=== PATIENT | male | born 1950 | race Caucasian/White ===

== ENCOUNTER 2018-04-27 15:14 | Emergency (ER) | payer MEDICARE ==
--- NOTE | 2018-04-27 16:04 | XRAY Report ---
Reason: soa Procedure Date: 04/27/2018 Accession Number: [id number] / [id number] Procedure: XR - Chest 2 View X-Ray CPT Code: 07532 FULL RESULT: EXAM: CHEST RADIOGRAPHY EXAM DATE: 04/27/2018 03:58 PM. CLINICAL HISTORY: Shortness of air. Nonproductive cough. COMPARISON: None. TECHNIQUE: 2 views. FINDINGS: Lungs/Pleura: Mild bronchial thickening particularly in the left lung base. No dense consolidation. No pleural effusion. No pneumothorax. Normal volumes. Mediastinum: Heart size is normal. Aorta is mildly tortuous. Aortic atherosclerosis. Other: Degenerative changes of the thoracic spine. IMPRESSION: 1. Mild bronchial thickening particularly in the left lung base through which can be seen with bronchitis. No dense consolidation. RADIA
[2018-04-27] MEDS ORDERED: AZITHROMYCIN 250 MG TABLET PO STA (17:38)
--- NOTE | 2018-04-27 17:43 | ED Physician Documentation ---
History of Present Illness - Stated complaint Stated Complaint: COUGH - Chief complaint Chief Complaint: Resp - Additonal information Additional information: hx from pt 67 male sick for about 10 days first sore throat then upper airway congestion now chest congestion and cough productive of yellow sputum that is hard to exepctoate lower rib pain with coughing no leg swelling GF with similar sx he did go to [place] but was sick prior during and after the trip Review of Systems Constitutional: denies: Fever Throat: reports: Sore throat Respiratory: reports: Cough GI: denies: Vomiting, Diarrhea Musculoskeletal: denies: Extremity swelling Endocrine: denies: Easy bruising / bleeding Immunocompromised: denies: Immunocompromised PD PAST MEDICAL HISTORY - Past Medical History Past Medical History: Yes Cardiovascular: Hypertension Endocrine/Autoimmune: Type 2 diabetes Musculoskeletal: Gout - Past Surgical History Past Surgical History: No - Present Medications Home Medications: Ambulatory Orders Medication Instructions Recorded Confirmed Allopurinol 100 mg PO 04/27/18 Azithromycin [Zithromax] 250 mg PO DAILY #4 tablet 04/27/18 Levothyroxine [Synthroid] 125 mcg PO QDAC 04/27/18 04/27/18 Losartan [Cozaar] 100 mg PO DAILY 04/27/18 04/27/18 Repaglinide [Prandin] 1 mg PO 04/27/18 diltiaZEM [Cardizem] 60 mg PO ONCE 04/27/18 04/27/18 - Allergies Allergies/Adverse Reactions: Allergies Allergy/AdvReac Type Severity Reaction Status Date / Time Sulfa (Sulfonamide Allergy Unknown Verified 04/27/18 15:26 Antibiotics) - Social History Does the pt smoke?: No Smoking Status: Never smoker Does the pt drink ETOH?: Yes Does the pt have substance abuse?: No - Immunizations Immunizations are current?: Yes PD ED PE NORMAL - Vitals Vital signs reviewed: Yes - HEENT HEENT: Other (mild) - Neck Neck: Supple, no meningeal sign - Cardiac Cardiac: RRR - Respiratory Respiratory: Other (ronchi L base) - Abdomen Abdomen: Non tender - Derm Derm: Normal color - Extremities Extremities: No edema, No calf tenderness / cord Results - Vitals Vitals: Vital Signs - 24 hr 04/27/18 15:22 Temperature 37.2 C Heart Rate 88 Respiratory 18 Rate Blood Pressure 187/88 H O2 Saturation 100 - Rads (name of study) CXR Radiology: See rad report (mild bronchial thickening L lung base which can be c/w bronchitis, no dense consolidation) Departure - Departure Disposition: 01 Home, Self Care Clinical Impression: Pneumonia Qualifiers: Pneumonia type: due to unspecified organism Laterality: left Lung location: lower lobe of lung Qualified Code(s): J18.1 - Lobar pneumonia, unspecified organism Condition: Good Instructions: ED Pneumonia Adult Prescriptions: Azithromycin [Zithromax] 250 mg PO DAILY #4 tablet Comments: Your xray does not show pneumonia but on exam the lower left lung sounds terrible So, as we discussed, I suspect you do have pneumonia and have prescribed antibiotics. Your blood pressure was a bit high today - please follow up with your PMD for a recheck
[2018-04-27 17:54] VITALS: BP 160/80
== END 2018-04-27 17:53 | disposition home or self-care (01) ==
LOC: ED 15:14
DX: J18.1 Lobar pneumonia, unspecified organism (principal); I10 Essential (primary) hypertension; E11.9 Type 2 diabetes mellitus without complications
CPT/HCPCS: 71046; 99283; A9270

== ENCOUNTER 2019-06-27 13:29 | Emergency (ER) | payer MEDICARE ==
--- NOTE | 2019-06-27 13:40 | ED Physician Documentation ---
PD HPI CHEST PAIN - Stated complaint Stated Complaint: CHEST PX - Chief complaint Chief Complaint: Cardiac - History obtained from History obtained from: Patient - History of Present Illness Timing - onset: How many weeks ago (1-2) Timing - onset during: Light activity (He has a history of diabetes and hypertension. No known history of heart disease. He states he exercises r egularly on a stationary bicycle and typically goes about 40 to 45 minutes without problems. He also is active walking and other activities. He has noticed feeling of chest pressure and shortness of breath with activity the last couple of weeks. He states he was only able to go about 10 minutes on his exercise bicycle without feeling discomfort. It would improve when resting. Today he had the onset of the discomfort with light activity and continued after resting. Additionally he is also been having feelings of palpitations intermittently not correlated with the chest pressure necessarily.), Exertion Timing - details: Still present (He has discomfort is still present today even after resting.) Quality: Pressure, Tightness. No: Sharp Location: Substernal Radiation: Back. No: Jaw, Neck Improved by: Rest (just did not improve with rest today) Worsened by: Exertion. No: Inspiration, Movement, Palpation Associated symptoms: Shortness of air, Palpitations. No: Nausea, Feeling faint / dizzy Similar symptoms before: Has not had sx before Review of Systems Constitutional: denies: Fever, Chills Nose: denies: Rhinorrhea / runny nose, Congestion Throat: denies: Sore throat Respiratory: denies: Cough GI: denies: Abdominal Pain, Nausea, Vomiting, Diarrhea Musculoskeletal: denies: Extremity swelling Neurologic: denies: Near syncope, Syncope PD PAST MEDICAL HISTORY - Past Medical History Cardiovascular: Hypertension Respiratory: None Neuro: None Endocrine/Autoimmune: Type 2 diabetes Musculoskeletal: Gout - Past Surgical History Past Surgical History: No - Present Medications Home Medications: Ambulatory Orders Medication Instructions Recorded Confirmed Levothyroxine [Synthroid] 125 mcg PO QDAC 04/27/18 04/27/18 Losartan [Cozaar] 100 mg PO DAILY 04/27/18 04/27/18 Repaglinide [Prandin] 1 mg PO 04/27/18 allopurinoL [Allopurinol] 100 mg PO 04/27/18 diltiaZEM [Cardizem] 60 mg PO ONCE 04/27/18 04/27/18 Insulin Glargine [Lantus Solostar] 0 unit 06/27/19 Insulin Regular Human [NovoLIN R] 10 unit SUBQ ONCE 06/27/19 06/27/19 - Allergies Allergies/Adverse Reactions: Allergies Allergy/AdvReac Type Severity Reaction Status Date / Time Sulfa (Sulfonamide Allergy Unknown Verified 06/27/19 13:39 Antibiotics) - Social History Does the pt smoke?: No Smoking Status: Never smoker Does the pt drink ETOH?: Yes Does the pt have substance abuse?: No - Immunizations Immunizations are current?: Yes PD ED PE NORMAL - Vitals Vital signs reviewed: Yes - General General: Alert and oriented X 3, No acute distress, Well developed/nourished - HEENT HEENT: Moist mucous membranes, Pharynx benign - Neck Neck: Supple, no meningeal sign, No adenopathy - Cardiac Cardiac: RRR, No murmur - Respiratory Respiratory: Clear bilaterally - Abdomen Abdomen: Soft, Non tender - Derm Derm: Normal color, Warm and dry - Extremities Extremities: No deformity, No tenderness to palpate, Normal ROM s pain, No edema, No calf tenderness / cord - Neuro Neuro: Alert and oriented X 3, No motor deficit, Normal speech Results - Vitals Vitals: Vital Signs - 24 hr 06/27/19 06/27/19 06/27/19 13:37 13:39 14:09 Temperature 36.8 C Heart Rate 98 70 72 Respiratory 18 18 18 Rate Blood Pressure 188/93 H 188/93 H 185/96 H O2 Saturation 97 97 96 06/27/19 06/27/19 06/27/19 15:39 16:00 16:30 Temperature 36.7 C Heart Rate 68 70 68 Respiratory 16 18 18 Rate Blood Pressure 160/80 H 175/93 H 162/86 H O2 Saturation 97 98 97 06/27/19 06/27/19 17:00 17:30 Temperature Heart Rate 66 63 Respiratory 18 18 Rate Blood Pressure 171/72 H 164/93 H O2 Saturation 98 99 Oxygen O2 Source Room air - EKG (time done) 13:34 Rate: Rate (enter#) (94) Rhythm: NSR [place]: Normal Intervals: Normal [place] QRS: Normal Ischemia: Normal ST segments, Other (t wave flattening laterally). No: ST elevation c/w ischemia, ST depression - Labs Labs: Laboratory Tests 06/27/19 06/27/19 06/27/19 14:28 14:28 14:28 WBC 6.8 RBC 4.94 Hgb 14.9 Hct 44.3 MCV 89.7 MCH 30.2 MCHC 33.6 RDW 13.7 Plt Count 188 MPV 10.2 Neut # (Auto) 4.6 Lymph # (Auto) 1.3 L [place] # (Auto) 0.6 Eos # (Auto) 0.2 Baso # (Auto) 0.1 Absolute Nucleated RBC 0.00 Nucleated RBC % 0.0 Sodium 140 Potassium 5.2 H Chloride 111 Carbon Dioxide 20 L Anion Gap 9.0 BUN 79 H Creatinine 2.1 H Estimated GFR (MDRD) 31 L Glucose 186 H Calcium 9.4 Magnesium 1.9 Total Bilirubin 0.5 AST 16 ALT 20 Alkaline Phosphatase 56 Troponin I High Sens 78.6 H* B-Natriuretic Peptide Total Protein 6.5 L Albumin 3.7 Globulin 2.8 Albumin/Globulin Ratio 1.3 Lipase 61 H 06/27/19 06/27/19 14:28 15:47 WBC RBC Hgb Hct MCV MCH MCHC RDW Plt Count MPV Neut # (Auto) Lymph # (Auto) [place] # (Auto) Eos # (Auto) Baso # (Auto) Absolute Nucleated RBC Nucleated RBC % Sodium Potassium Chloride Carbon Dioxide Anion Gap BUN Creatinine Estimated GFR (MDRD) Glucose Calcium Magnesium Total Bilirubin AST ALT Alkaline Phosphatase Troponin I High Sens 119.1 H* B-Natriuretic Peptide 72 Total Protein Albumin Globulin Albumin/Globulin Ratio Lipase - Rads (name of study) chest xray Radiology: Prelim report reviewed (no infiltrates. Normal heart size. ), See rad report PD MEDICAL DECISION MAKING - ED course Complexity details: reviewed results (He has symptoms of angina just over the last couple of weeks with worsening to light exertion and rest angina today improved with nitroglycerin. He has an elevation of troponin suggesting unstable angina. I will talk with cardiology to decide a plan on further evaluation.), re-evaluated patient (pressure gone with NTG. ), considered differential (New onset angina versus unstable angina or non-STEMI given his chest pain very indicative of exertional in symptoms for couple of weeks and progressively worse.), d/w patient, d/w intelligence consultant (Looking for bed availability at higher level of care facilities. No beds were available nearby and expanded out. [facility] able to accept the patient with anticipated discharges this evening and afternoon. I talked with Dr. Sykes the associate director financial aid who will further evaluate the patient and likely do a heart cath given the positive troponins. To treat as non-STEMI and unstable angina at this point. I talked with Dr. Sidhu the hospitalist who will accept the transfer.) Departure - Departure Disposition: 02 Transfer Acute Care Hosp Clinical Impression: Unstable angina, Elevated troponin, Diabetes Condition: Stable Record reviewed to determine appropriate education?: Yes
[2019-06-27] MEDS ORDERED: NITROGLYCERIN SL 0.4 MG TABLET SL STA (14:17)
[2019-06-27 14:39] LABS: BASOPHILS # (AUTO) 0.1 10^3/uL (0.0-0.1); BASOPHILS % (AUTO) 0.9 %; EOSINOPHILS # (AUTO) 0.2 10^3/uL (0.0-0.7); EOSINOPHILS % (AUTO) 2.2 %; HGB - HEMOGLOBIN 14.9 g/dL (14.0-18.0); LYMPHOCYTES # (AUTO) 1.3 10^3/uL (1.5-3.5); LYMPHOCYTES % (AUTO) 19.1 %; MEAN CORPUSCULAR HEMOGLOBIN 30.2 pg (27.0-31.0); MEAN CORPUSCULAR HGB CONC 33.6 g/dL (32.0-36.0); MEAN CORPUSCULAR VOLUME 89.7 fL (80.0-94.0); MEAN PLATELET VOLUME 10.2 fL (7.4-11.4); MONOCYTES # (AUTO) 0.6 10^3/uL (0.0-1.0); MONOCYTES % (AUTO) 8.8 %; NEUTROPHILS # (AUTO) 4.6 10^3/uL (1.5-6.6); NEUTROPHILS % (AUTO) 68.3 %; PLT - PLATELET COUNT 188 10^3/uL (130-450); RED BLOOD COUNT 4.94 10^6/uL (4.70-6.10); RED CELL DISTRIBUTION WIDTH 13.7 % (12.0-15.0); WHITE BLOOD COUNT 6.8 x10^3/uL (4.8-10.8)
[2019-06-27 14:47] LABS: ALBUMIN 3.7 g/dL (3.2-5.5); ALBUMIN/GLOBULIN RATIO 1.3 (1.0-2.2); BILIRUBIN,TOTAL 0.5 mg/dL (0.2-1.0); CALCIUM 9.4 mg/dL (8.5-10.3); CREATININE 2.1 mg/dL (0.6-1.2); MAGNESIUM 1.9 mg/dL (1.7-2.8); TOTAL PROTEIN 6.5 g/dL (6.7-8.2)
--- NOTE | 2019-06-27 14:59 | XRAY Report ---
Reason: Chest Pain Procedure Date: 06/27/2019 Accession Number: [id number] / [id number] Procedure: XR - Chest 1 View X-Ray CPT Code: 04466 Final Report FULL RESULT: EXAM: CHEST RADIOGRAPHY 1 VIEW EXAM DATE: 06/27/2019. CLINICAL HISTORY: Chest pain. COMPARISON: PA and lateral chest done 04/27/2018. TECHNIQUE: AP portable chest at 1422. FINDINGS: Lungs/Pleura: Normal vasculature. The lungs are clear. No pleural fluid or pneumothorax. Mediastinum: Normal cardiac and mediastinal contours. Mild atherosclerosis of the aortic arch. Bones: Degenerative changes of the spine. IMPRESSION: Within normal limits for age. RADIA
[2019-06-27] MEDS ORDERED: NITROGLYCERIN 2% PASTE TOP STA (16:25)
[2019-06-27] MEDS ORDERED: HEPARIN 25000UNITS/500ML (D5W) 25,000 UNIT/500 ML BAG IV STA (16:25)
[2019-06-27] MEDS ORDERED: HEPARIN 5,000 UNIT/ML VIAL IVP STA (16:25)
[2019-06-27] MEDS ORDERED: CLOPIDOGREL 75 MG TABLET PO STA (16:25)
[2019-06-27] MEDS ORDERED: ASPIRIN CHEW 81 MG TABLET PO STA (16:41)
[2019-06-27] MEDS ORDERED: METOPROLOL 5 MG/5 ML VIAL IVP STA (16:49)
[2019-06-27 18:42] VITALS: BP 160/77
== END 2019-06-27 19:18 | disposition short-term general hospital (02) ==
LOC: ED 13:29
DX: I20.0 Unstable angina (principal); R79.89 Other specified abnormal findings of blood chemistry; I10 Essential (primary) hypertension; E11.9 Type 2 diabetes mellitus without complications; Z79.4 Long term (current) use of insulin
CPT/HCPCS: 36415; 71045; 80053; 83690; 83735; 83880; 84484; 85025; 93005; 96374; 99284; 99285; A9270

== ENCOUNTER 2019-06-27 19:21 | Outpatient (CLI) | payer MEDICARE | END 2019-06-27 19:22 | disposition short-term general hospital (02) | LOC: EMS 19:21 | PROVIDERS: ATTEND Surgery | DX: R07.9 Chest pain, unspecified (principal); R79.89 Other specified abnormal findings of blood chemistry | CPT/HCPCS: A0425; A0426 ==

== ENCOUNTER 2019-09-12 20:47 | Emergency (ER) | payer MEDICARE ==
--- NOTE | 2019-09-12 20:58 | ED Physician Documentation ---
History of Present Illness - Stated complaint Stated Complaint: DIZZY/CABRERA/FALL - History obtained from History obtained from: Patient (Patient is a very pleasant 69-year-old male here with a chief complaint of head injury patient reports that 3 days ago he was cutting his grass and he was walking backwards when he tripped over a rock and fell and hit the back of his head on a rock. He is complaining of a feeling of nausea, Loss of consciousness, mild headache he denies any chest pain or syncopal episodes he has an insulin-dependent diabetic he reports he has been checking his blood sugars and they have been in the low 100s. He denies any fevers, rashes or any recent illnesses.He is on Plavix secondary to coronary artery disease. He has had 1 previous VT with 1 stent placement.) Review of Systems Constitutional: reports: Reviewed and negative Eyes: reports: Reviewed and negative Ears: reports: Reviewed and negative Nose: reports: Reviewed and negative Throat: reports: Reviewed and negative Cardiac: reports: Reviewed and negative Respiratory: reports: Reviewed and negative GI: reports: Reviewed and negative : reports: Reviewed and negative Skin: reports: Reviewed and negative Musculoskeletal: reports: Reviewed and negative Neurologic: reports: Head injury Psychiatric: reports: Reviewed and negative Endocrine: reports: Reviewed and negative Immunocompromised: reports: Reviewed and negative PD PAST MEDICAL HISTORY - Past Medical History Cardiovascular: Hypertension Respiratory: None Neuro: None Endocrine/Autoimmune: Type 2 diabetes : Other Musculoskeletal: Gout - Past Surgical History Past Surgical History: No - Present Medications Home Medications: Ambulatory Orders Medication Instructions Recorded Confirmed allopurinoL [Allopurinol] 200 mg PO DAILY 04/27/18 09/12/19 Insulin Glargine [Lantus Solostar] 10 unit SUBQ DAILY 06/27/19 09/12/19 Aspirin 81 mg PO DAILY 09/12/19 09/12/19 Atorvastatin Calcium 80 mg PO QPM 09/12/19 09/12/19 Carvedilol 6.25 mg PO BID 09/12/19 09/12/19 Colchicine 0.6 mg PO DAILY PRN 09/12/19 09/12/19 Insulin Aspart [NovoLOG] units SUBQ TID 09/12/19 Levothyroxine Sodium 200 mcg PO DAILY 09/12/19 09/12/19 Nitroglycerin 0.4 mg PO DAILY 09/12/19 09/12/19 Ondansetron Odt [Zofran Odt] 4 mg TL Q6H PRN #10 tablet 09/12/19 Valsartan 320 mg PO DAILY 09/12/19 09/12/19 amLODIPine [Norvasc] 5 mg PO DAILY 09/12/19 09/12/19 - Allergies Allergies/Adverse Reactions: Allergies Allergy/AdvReac Type Severity Reaction Status Date / Time Sulfa (Sulfonamide Allergy Unknown Verified 09/12/19 20:58 Antibiotics) - Social History Does the pt smoke?: No Smoking Status: Never smoker Does the pt drink ETOH?: Yes Does the pt have substance abuse?: No - Immunizations Immunizations are current?: Yes - POLST Patient has POLST: No PD ED PE NORMAL - Vitals Vital signs reviewed: Yes - General General: Alert and oriented X 3, No acute distress, Well developed/nourished - HEENT HEENT: Atraumatic, PERRL, Moist mucous membranes - Neck Neck: Supple, no meningeal sign, No bony TTP, No JVD - Cardiac Cardiac: RRR, No murmur, Strong equal pulses - Respiratory Respiratory: No respiratory distress, Clear bilaterally - Abdomen Abdomen: Normal bowel sounds, Soft, Non tender, Non distended, No organomegaly - Back Back: No CVA TTP, No spinal TTP - Derm Derm: Normal color, Warm and dry, No rash - Extremities Extremities: No deformity, No tenderness to palpate, Normal ROM s pain, No edema, No calf tenderness / cord - Neuro Neuro: Alert and oriented X 3, 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 Normal gait he can walk on his heels he can walk on his toes extract motions intact he has fatigable horizontal nystagmus there is no vertical nystagmus is HINTS exam is negative. There is no facial droop, no pronator drift and no unilateral weakness. Normal [id number] normal [id number] and normal rapid alternating movements.Strength is 5 out of 5 bilateral upper and lower extremity sensations intact light touch reflexes are 2+ and symmetric in bilateral upper and lower extremities.) - Psych Psych: Normal mood, Normal affect Results - Vitals Vitals: Vital Signs - 24 hr 09/12/19 09/12/19 09/12/19 20:50 21:17 21:36 Temperature 37 C Heart Rate 69 63 62 Respiratory 18 20 12 Rate Blood Pressure 181/93 H 181/93 H 180/86 H O2 Saturation 100 98 97 09/12/19 09/12/19 22:11 22:54 Temperature 36.8 C Heart Rate 63 62 Respiratory 13 13 Rate Blood Pressure 164/86 H 176/90 H O2 Saturation 98 99 Oxygen O2 Source Room air PD MEDICAL DECISION MAKING - ED course Complexity details: considered differential (History and exam are consistent with close head injury CT scan of the head is negative CT scan of the cervical spine is negative. He has complained of nausea will provide him with oral Zofran.) Departure - Departure Disposition: 01 Home, Self Care Clinical Impression: Head injury Qualifiers: Encounter type: initial encounter Qualified Code(s): S09.90XA - Unspecified injury of head, initial encounter Condition: Stable Instructions: ED Head Injury Closed Follow-Up: Patricia Marcial MD [Primary Care Provider] - Tomorrow Prescriptions: Ondansetron Odt [Zofran Odt] 4 mg TL Q6H PRN #10 tablet PRN Reason: Nausea / Vomiting Discharge Date/Time: 09/12/19 22:54
--- NOTE | 2019-09-12 22:31 | CT Report ---
Reason: head injury Procedure Date: 09/12/2019 Accession Number: [id number] / [id number] Procedure: CT - HEAD WO CPT Code: Final Report FULL RESULT: EXAM: CT HEAD EXAM DATE: 09/12/2019 09:24 PM. CLINICAL HISTORY: Tripped and fell backwards mowing lawn. Vertigo for 2 days. COMPARISON: None. TECHNIQUE: Multiaxial CT images were obtained from the foramen magnum to the vertex. Reformats: Sagittal and coronal. IV contrast: None. In accordance with CT protocol optimization, one or more of the following dose reduction techniques were utilized for this exam: automated exposure control, adjustment of mA and/or KV based on patient size, or use of iterative reconstructive technique. FINDINGS: Parenchyma: No intraparenchymal hemorrhage. No evidence of mass, midline shift, or CT findings of infarction. Garcia-white differentiation is distinct. Extraaxial Spaces: Mild prominence of the ventricles and sulci in keeping with mild volume loss. No subdural or epidural collections identified. Ventricles: See above Sinuses and Orbits: There is mucosal thickening in the maxillary sinuses, suggestive of polyps or mucous retention cyst. Bones: No evidence of fracture or calvarial defect. Other: None. IMPRESSION: No acute pathology. RADIA
--- NOTE | 2019-09-12 22:36 | CT Report ---
Reason: neck injury Procedure Date: 09/12/2019 Accession Number: [id number] / [id number] Procedure: CT - CERVICAL SPINE WO CPT Code: Final Report FULL RESULT: EXAM: CT CERVICAL SPINE WITHOUT CONTRAST DATE: 09/12/2019 09:37 PM. HISTORY: Neck injury. COMPARISONS: None. TECHNIQUE: Thin-section axial images were acquired of the cervical spine without contrast. Post-processing: Coronal and sagittal reformats. Other: None. In accordance with CT protocol optimization, one or more of the following dose reduction techniques were utilized for this exam: automated exposure control, adjustment of mA and/or KV based on patient size, or use of iterative reconstructive technique. FINDINGS: Alignment: No scoliosis or spondylolisthesis. Bones: There are no fractures no subluxations of the cervical spine. Interspace Levels/Facets: There is cervical spondylosis at multiple levels. There are small posterior marginal osteophytes and there are partially anterior bridging osteophytes particular at the C5-C6 level and C6-C7 level. Musculature: Normal. No fatty atrophy. Other: The paravertebral and prevertebral soft tissues are unremarkable. The lung apices are clear. IMPRESSION: 1. Cervical spondylosis. 2. No acute fractures no subluxations. RADIA
[2019-09-12] MEDS ORDERED: ONDANSETRON ODT 4 MG TABLET TL STA (22:48)
[2019-09-12 22:54] VITALS: BP 176/90
== END 2019-09-12 22:54 | disposition home or self-care (01) ==
LOC: ED 20:47
DX: S09.90XA Unspecified injury of head, initial encounter (principal); W01.198A Fall on same level from slipping, tripping and stumbling with subsequent striking against other object, initial encounter; Y93.H2 Activity, gardening and landscaping; Y92.007 Garden or yard of unspecified non-institutional (private) residence as the place of occurrence of the external cause; I10 Essential (primary) hypertension; E11.9 Type 2 diabetes mellitus without complications; Z79.4 Long term (current) use of insulin
CPT/HCPCS: 70450; 72125; 99284; Q0162

== ENCOUNTER 2020-12-24 18:18 | Outpatient (CLI) | payer MEDICARE | END 2020-12-24 18:19 | disposition critical access hospital (66) | LOC: EMS 18:18 | DX: R07.9 Chest pain, unspecified (principal) | CPT/HCPCS: A0425; A0427 ==

== ENCOUNTER 2020-12-24 18:32 | Emergency (ER) | payer MEDICARE ==
[2020-12-24 19:05] LABS: BASOPHILS # (AUTO) 0.1 10^3/uL (0.0-0.1); BASOPHILS % (AUTO) 0.8 %; EOSINOPHILS # (AUTO) 0.3 10^3/uL (0.0-0.7); EOSINOPHILS % (AUTO) 2.8 %; HCT - HEMATOCRIT 48.9 % (42.0-52.0); HGB - HEMOGLOBIN 16.5 g/dL (14.0-18.0); LYMPHOCYTES # (AUTO) 1.6 10^3/uL (1.5-3.5); LYMPHOCYTES % (AUTO) 18.3 %; MEAN CORPUSCULAR HEMOGLOBIN 30.7 pg (27.0-31.0); MEAN CORPUSCULAR HGB CONC 33.7 g/dL (32.0-36.0); MEAN CORPUSCULAR VOLUME 91.1 fL (80.0-94.0); MEAN PLATELET VOLUME 10.6 fL (7.4-11.4); MONOCYTES # (AUTO) 0.8 10^3/uL (0.0-1.0); MONOCYTES % (AUTO) 9.2 %; NEUTROPHILS # (AUTO) 6.1 10^3/uL (1.5-6.6); NEUTROPHILS % (AUTO) 68.7 %; PLT - PLATELET COUNT 175 10^3/uL (130-450); RED BLOOD COUNT 5.37 10^6/uL (4.70-6.10); RED CELL DISTRIBUTION WIDTH 13.6 % (12.0-15.0); WHITE BLOOD COUNT 8.8 x10^3/uL (4.8-10.8)
--- NOTE | 2020-12-24 19:13 | XRAY Report ---
PROCEDURE: Chest 1 View X-Ray INDICATIONS: Chest pain TECHNIQUE: One view of the chest was acquired. COMPARISON: FINDINGS: Surgical changes and devices: None. Lungs and pleura: No pleural effusions or pneumothorax. Lungs are clear. Mediastinum: Mediastinal contours appear normal. Heart size is normal. Bones and chest wall: No suspicious bony lesions. Overlying soft tissues appear unremarkable. IMPRESSION: Normal for age considering body habitus, source of current symptoms is not seen. Reviewed by: Domo Yoo MD on 12/24/2020 7:12 PM PDT Approved by: Domo Yoo MD on 12/24/2020 7:12 PM PDT Station ID: [id number]
[2020-12-24 19:20] LABS: ALBUMIN/GLOBULIN RATIO 1.3 (1.0-2.2); BILIRUBIN,TOTAL 0.7 mg/dL (0.2-1.0); CALCIUM 9.7 mg/dL (8.5-10.3); POTASSIUM 4.7 mmol/L (3.5-5.0)
--- NOTE | 2020-12-24 22:41 | ED Physician Documentation ---
PD HPI CHEST PAIN - Stated complaint Stated Complaint: CHEST PRESSURE - Chief complaint Chief Complaint: Cardiac - History obtained from History obtained from: Patient - Additional information Additional information: 70-year-old man with past medical history of coronary artery disease with stents, most recent placed in February [address] Kruse at [facility], hypothyroidism, high blood pressure, hyperlipidemia, diabetes, presents with epigastric chest pain waking him from sleep 10:30 PM yesterday, improved with nitro, followed by another episode around 2 AM improved with nitro. Patient had milder pain during the day and took nitro again at 5 PM, called his dry mixer and was told to come to the emergency department. Pain is Now resolved. At its worst, it was moderate severity, aching, nonradiating, without any associated factors. It was not worse with exertion. It did improve with nitro. Denies fever, leg swelling, nausea, diaphoresis, cough or shortness of breath. Took 325 of aspirin prior to arrival. Review of Systems Ten Systems: 10 systems reviewed and negative Constitutional: denies: Fever, Chills Cardiac: reports: Chest pain / pressure Respiratory: denies: Dyspnea GI: denies: Abdominal Pain, Nausea, Vomiting PD PAST MEDICAL HISTORY - Past Medical History Cardiovascular: Hypertension Respiratory: None Neuro: None Endocrine/Autoimmune: Type 2 diabetes : Other Musculoskeletal: Gout - Past Surgical History Past Surgical History: No Cardiovascular: Angioplasty - Present Medications Home Medications: Ambulatory Orders Medication Instructions Recorded Confirmed allopurinoL [Allopurinol] 200 mg PO DAILY 04/27/18 12/24/20 Insulin Glargine [Lantus Solostar] 14 unit SUBQ DAILY 06/27/19 12/24/20 Aspirin 81 mg PO DAILY 09/12/19 12/24/20 Atorvastatin Calcium 80 mg PO QPM 09/12/19 12/24/20 Carvedilol 6.25 mg PO BID 09/12/19 12/24/20 Colchicine 0.6 mg PO DAILY PRN 09/12/19 12/24/20 Insulin Aspart [NovoLOG] units SUBQ TID 09/12/19 Levothyroxine Sodium 175 mcg PO DAILY 09/12/19 12/24/20 Nitroglycerin 0.4 mg PO DAILY 09/12/19 12/24/20 amLODIPine [Norvasc] 10 mg PO DAILY 09/12/19 12/24/20 Clopidogrel [Plavix] 75 mg DAILY 12/24/20 12/24/20 Losartan Potassium [Cozaar] 100 mg DAILY 12/24/20 12/24/20 cloNIDine [Catapres] 0.2 mg QPM 12/24/20 12/24/20 - Allergies Allergies/Adverse Reactions: Allergies Allergy/AdvReac Type Severity Reaction Status Date / Time Sulfa (Sulfonamide Allergy Unknown Verified 12/24/20 18:38 Antibiotics) - Social History Does the pt smoke?: No Smoking Status: Never smoker Does the pt drink ETOH?: Yes Does the pt have substance abuse?: No - Immunizations Immunizations are current?: Yes - POLST Patient has POLST: No PD ED PE NORMAL - Vitals Vital signs reviewed: Yes - General General: Alert and oriented X 3, No acute distress, Well developed/nourished - HEENT HEENT: Atraumatic, PERRL, EOMI - Neck Neck: Supple, no meningeal sign - Cardiac Cardiac: RRR - Respiratory Respiratory: No respiratory distress, Clear bilaterally - Abdomen Abdomen: Non tender, Non distended - Derm Derm: Normal color - Extremities Extremities: No deformity - Neuro Neuro: Alert and oriented X 3 - Psych Psych: Normal mood, Normal affect Results - Vitals Vitals: Vital Signs - 24 hr 12/24/20 12/24/20 12/24/20 18:38 19:01 19:30 Temperature 36.5 C 36.5 C Heart Rate 65 64 62 Respiratory 18 18 12 Rate Blood Pressure 160/85 H 163/93 H 169/78 H O2 Saturation 100 96 98 12/24/20 12/24/20 12/24/20 20:00 20:30 21:00 Temperature Heart Rate 60 60 61 Respiratory 12 13 13 Rate Blood Pressure 177/78 H 167/82 H 162/78 H O2 Saturation 98 98 99 12/24/20 12/24/20 12/24/20 22:00 22:30 23:00 Temperature 36.5 C Heart Rate 70 70 65 Respiratory 14 14 15 Rate Blood Pressure 175/81 H 168/87 H 126/72 O2 Saturation 97 98 99 12/24/20 12/25/20 23:30 00:00 Temperature Heart Rate 60 62 Respiratory 15 16 Rate Blood Pressure 123/74 125/75 O2 Saturation 98 99 Oxygen O2 Source Room air - EKG (time done) 1828 Rate: Rate (enter#) (63) Rhythm: NSR Ischemia: Other (no STEMI) 194 Rate: Rate (enter#) (62) Rhythm: NSR Ischemia: Other (no STEMI) - Labs Labs: Laboratory Tests 12/24/20 12/24/20 12/24/20 19:02 19:02 19:02 WBC 8.8 RBC 5.37 Hgb 16.5 Hct 48.9 MCV 91.1 MCH 30.7 MCHC 33.7 RDW 13.6 Plt Count 175 MPV 10.6 Neut # (Auto) 6.1 Lymph # (Auto) 1.6 [place] # (Auto) 0.8 Eos # (Auto) 0.3 Baso # (Auto) 0.1 Absolute Nucleated RBC 0.00 Nucleated RBC % 0.0 Sodium 142 Potassium 4.7 Chloride 111 Carbon Dioxide 21 Anion Gap 10.0 BUN 55 H Creatinine 2.0 H Estimated GFR (MDRD) 33 L Glucose 83 Calcium 9.7 Total Bilirubin 0.7 AST 21 ALT 28 Alkaline Phosphatase 67 Troponin I High Sens 19.1 Total Protein 7.0 Albumin 4.0 Globulin 3.0 Albumin/Globulin Ratio 1.3 Lipase 40 12/24/20 12/24/20 19:50 21:29 WBC RBC Hgb Hct MCV MCH MCHC RDW Plt Count MPV Neut # (Auto) Lymph # (Auto) [place] # (Auto) Eos # (Auto) Baso # (Auto) Absolute Nucleated RBC Nucleated RBC % Sodium Potassium Chloride Carbon Dioxide Anion Gap BUN Creatinine Estimated GFR (MDRD) Glucose Calcium Total Bilirubin AST ALT Alkaline Phosphatase Troponin I High Sens 22.3 H* 27.0 H* Total Protein Albumin Globulin Albumin/Globulin Ratio Lipase PD MEDICAL DECISION MAKING - ED course ED course: 70-year-old man presenting for evaluation of chest pain, with mildly elevated trop on repeat testing. will d/w his dry mixer. patient asymptomatic at present. d/w Dr. Perez, dry mixer at [facility] who recommends admission for cath given his high risk history and persistent symptoms. [facility] has no beds available tonight but they should have something in the morning. They will call us with an update between 7-8am then again every 4 hours if no bed available at that time. d/w accepting hospitalist Dr. Razia Giang. we will start heparin here in the ED and await transfer. Departure - Departure Disposition: 02 Transfer Acute Care Hosp Clinical Impression: Chest pain, Elevated troponin
[2020-12-25] MEDS: HEPARIN 25000UNITS/500ML (D5W) 25,000 UNIT/500 ML BAG IV SCH ×2 (00:30→20:07)
[2020-12-25 00:40] LABS: B. PARAPERTUSSIS- RESP PCR PAN NOT DETECTED; B. PERTUSSIS- RESP PCR PANEL NOT DETECTED; C. PNEUMONIAE- RESP PCR PANEL NOT DETECTED; CORONAVIRUS 229E-RESP PCR NOT DETECTED; CORONAVIRUS HKU1-RESP PCR NOT DETECTED; CORONAVIRUS NL63-RESP PCR NOT DETECTED; CORONAVIRUS OC43-RESP PCR NOT DETECTED; HUMAN METAPNEUMOVIRUS NOT DETECTED; INFLUENZA A- RESP PCR PANEL NOT DETECTED; INFLUENZA B - RESP PCR PANEL NOT DETECTED; M. PNEUMONIAE- RESP PCR PANEL NOT DETECTED; PARAINFLUENZA VIRUS 1 NOT DETECTED; PARAINFLUENZA VIRUS 2 NOT DETECTED; PARAINFLUENZA VIRUS 3 NOT DETECTED; PARAINFLUENZA VIRUS 4 NOT DETECTED; RHINOVIRUS/ENTEROVIRUS NOT DETECTED; RSV- RESP PCR PANEL NOT DETECTED; SARS-CoV-2 -RESP PCR PANEL NOT DETECTED
[2020-12-25] MEDS ORDERED: INSULIN GLARGINE 300 UNIT/3 ML PEN SUBQ STA (18:21)
[2020-12-25] MEDS ORDERED: NITROGLYCERIN SL 0.4 MG TABLET SL ONE (22:38)
[2020-12-25] MEDS ORDERED: NITROGLYCERIN SL 0.4 MG TABLET SL STA ×2 (22:38→22:44)
--- NOTE | 2020-12-25 23:21 | ED Physician Documentation ---
ED Addendum - Addendum Addendum: 12/25/20 23:19 Patient with brief resolved episode of crushing chest pain, he described it as 1/10 but was uncomfortable apperaing. EKG at 2233 NSR at 57 with PVC. no acute ANGELES. nitro 0.4 SL given with relief of symptoms.
[2020-12-26 06:54] LABS: BASOPHILS # (AUTO) 0.1 10^3/uL (0.0-0.1); BASOPHILS % (AUTO) 0.6 %; EOSINOPHILS # (AUTO) 0.3 10^3/uL (0.0-0.7); EOSINOPHILS % (AUTO) 3.8 %; HGB - HEMOGLOBIN 15.3 g/dL (14.0-18.0); LYMPHOCYTES # (AUTO) 1.9 10^3/uL (1.5-3.5); LYMPHOCYTES % (AUTO) 25.2 %; MEAN CORPUSCULAR HEMOGLOBIN 30.6 pg (27.0-31.0); MEAN CORPUSCULAR HGB CONC 32.6 g/dL (32.0-36.0); MEAN PLATELET VOLUME 11.3 fL (7.4-11.4); MONOCYTES # (AUTO) 0.8 10^3/uL (0.0-1.0); NEUTROPHILS # (AUTO) 4.6 10^3/uL (1.5-6.6); NEUTROPHILS % (AUTO) 60.1 %; PLT - PLATELET COUNT 150 10^3/uL (130-450); RED CELL DISTRIBUTION WIDTH 13.9 % (12.0-15.0); WHITE BLOOD COUNT 7.7 x10^3/uL (4.8-10.8)
[2020-12-26 06:56] LABS: INR 1.1 (0.8-1.2); PT - PROTHROMBIN TIME 12.6 secs (9.9-12.6)
[2020-12-26 06:59] LABS: CALCIUM 8.8 mg/dL (8.5-10.3); CREATININE 2.1 mg/dL (0.6-1.2); POTASSIUM 4.4 mmol/L (3.5-5.0)
[2020-12-26 07:03] LABS: PARTIAL THROMBOPLASTIN TIME 65.9 secs (24.9-33.3)
[2020-12-26] MEDS ORDERED: INSULIN GLARGINE 300 UNIT/3 ML PEN SUBQ STA (08:23)
[2020-12-26] MEDS ORDERED: INSULIN ASPART 100 UNIT/1 ML 10 ML MDV SUBQ STA (12:48)
[2020-12-26 14:10] VITALS: BP 158/87
--- NOTE | 2020-12-26 14:25 | ED Physician Documentation ---
ED Addendum - Addendum Addendum: 12/26/20 14:24 Patient did have recurrent chest pain in the emergency department. Resolved with nitroglycerin. Repeat EKG at 1353 shows a rate of 78. Normal sinus rhythm. Multiple PVCs. Anterolateral repol abnormality, nonspecific. [facility] have [facility] available and the patient will be transferred as planned there for further care. Currently asymptomatic at the time of transfer. This document was made in part using voice recognition software. While efforts are made to proofread this document, sound alike and grammatical errors may occur.
== END 2020-12-26 14:28 | disposition short-term general hospital (02) ==
LOC: EDUNIT# → SUPCPDRO 18:32 → ED 18:32
DX: R07.89 Other chest pain (principal); R77.8 Other specified abnormalities of plasma proteins; I10 Essential (primary) hypertension; E11.9 Type 2 diabetes mellitus without complications; Z79.4 Long term (current) use of insulin; Z20.822 Contact with and (suspected) exposure to COVID-19
CPT/HCPCS: 36415; 71045; 80048; 80053; 83690; 84484; 85025; 85520; 85610; 85730; 87631; 93005; 96365; 96366; 96376; 99284; 99285; A9270; J1815; 0202U

== ENCOUNTER 2020-12-26 14:29 | Outpatient (CLI) | payer MEDICARE | END 2020-12-26 14:30 | disposition short-term general hospital (02) | LOC: EMS 14:29 | PROVIDERS: ATTEND Emergency Medicine | DX: R07.9 Chest pain, unspecified (principal); R74.8 Abnormal levels of other serum enzymes | CPT/HCPCS: A0425; A0426 ==

== ENCOUNTER 2021-08-26 10:00 | Outpatient (CLI) | payer MEDICARE ==
[2021-08-26 20:37] LABS: ESTIMATED AVERAGE GLUCOSE 160 mg/dL (70-100); HEMOGLOBIN A1c% 7.2 % (4.27-6.07)
== END 2021-08-26 23:59 | disposition home or self-care (01) ==
LOC: LAB.R 10:00
PROVIDERS: ATTEND Internal Medicine
DX: I25.10 Atherosclerotic heart disease of native coronary artery without angina pectoris (principal); E11.9 Type 2 diabetes mellitus without complications; E03.9 Hypothyroidism, unspecified; G47.9 Sleep disorder, unspecified
CPT/HCPCS: 83036; 84443

== ENCOUNTER 2021-12-20 20:52 | Outpatient (CLI) | payer MEDICARE | END 2021-12-20 20:53 | disposition home or self-care (01) | LOC: SC 20:52 | PROVIDERS: ATTEND Nurse Practitioner Family | DX: G47.33 Obstructive sleep apnea (adult) (pediatric) (principal); G47.61 Periodic limb movement disorder | CPT/HCPCS: 95810 ==

== ENCOUNTER 2022-03-23 10:48 | Outpatient (CLI) | payer MEDICARE ==
[2022-03-23 11:36] VITALS: BP 128/78
--- NOTE | 2022-03-23 11:36 | SLEEP CARE CONSULTATION ---
Information from patient questionnaire entered by Rebekah Dalal. I have reviewed and concur with the information entered by Rebekah Dalal. This document represents the service I personally performed and the decisions made by me, Johnna Murillo ARNP. History of Present Illness Service Date and Time: 03/23/2022 1048 Previous diagnosis: Mild, Obstructive Sleep Apnea-Hypopnea Syndrome AHI: 12.0 (in 2021) Reason for follow up: first compliance Equipment type: CPAP (ResMed) Equipment obtained from: Other ([employer]; getting supplies) Mask style: Full face Mask brand: Respironics (Dreamwear) Backup mask available: Yes (other mask) Last cushion change: 1 month Prior sleep studies: Yes Type of Sleep Study: Polysomnography (F/U POLY, 12/20/2021 [facility], POS,) HPI additional information: DENEEN LARES was diagnosed to have mild, AHI 12.0, obstructive sleep apnea- hypopnea syndrome and returned today for CPAP therapy first compliance follow- up. Sleep Study - Results Type of Sleep Study: Polysomnography (F/U POLY, 12/20/2021 [facility], POS,) Prior sleep studies: No CPAP Compliance Data - Data Reviewed with Patient Average duration of nightly device use: 6 HRS 6 MIN Compliance rate %: 90 (02/19/2022-03/20/2022; 30/30 days used) Current pressure setting (cmH2O): 4-15 (median 8.1, avg 12.5, max 13.4) Average residual AHI: 11.5 Central apnea: 0.6 Obstructive apnea: 3.6 Hypopnea: 3.5 Subjective Missed days of use due to: reports: mask issues (waking up due to noise of mask leaking) Patient concerns: reports: air blowing in eyes, mask leak noise, condensation in mask/hose (adjusted humidity to reduce), dry mouth, nose, throat. denies: aerophagia, mask discomfort, nasal congestion, epistaxis Observed to snore while using device: No Current pressure setting perceived as: too high On therapy, patient: reports: sleeping better (sleeping differently, awakening 5-7 times a night), other (having more wake ups due to mask leak noise) Initial [place] Sleepiness Scale score: 2 (12/13/2021) Allergies and Home Medications Drug allergies reviewed: Yes (as listed) Home medication list reviewed: Yes (no changes) Review of Systems Review of systems same as previous: Yes (no changes) Physical Exam Vital signs obtained and entered by: REBEKAH Mclean MA Blood Pressure: 128/78 (left arm) Cuff size: regular Heart Rate: 56 O2 Saturation: 99 Height: 6 ft 4 in Weight: 213 lb 3.2 oz Body Mass Index: 25.9 BMI Classification: Overweight Impression and Plan 1. Obstructive Sleep Apnea-Hypopnea Syndrome, mild, with good treatment compliance and fair apnea control with elevated residual AHI. On CPAP therapy, the patient feels he is waking up more often, 5-7 times, because the full face mask he is using will leak. He is normally a side sleeper but cannot completely sleep on his side because the mask will leak more. Mask leaks can be reduced by washing mask daily and changing mask cushions more frequently to improve mask seal and comfort. Additionally, mask leaks predominately from when patient sleeps on their side can be reduced by using a CPAP pillow. This pillow can be purchased online. He voiced understanding. The patients pressure will be changed to autoCPAP 11-14 cmH20 for elevation of residual AHI. Patient advised to contact me if pressure change is uncomfortable so that it can be adjusted. Goals for apnea control discussed. Patient has practice Qigong breathing for a long time and will practice this with his mask on when going to sleep. He is not sure if this is affecting his respiratory events because of his practice of m easured breathing. He also explains that when he first puts on his mask he will need to cough. He states it is more of a clearing cough instead of congested cough. He asks when the machine detects the event, if it is at the beginning or end of his exhale. I am not sure and will have to ask Dr. Lee. Patient's apnea severity and rationale for treatment to reduce apnea, improve sleep quality and reduce cardiovascular and cerebrovascular events was reviewed. I also reviewed the benefit of consistent device use of CPAP for hypertension, cardiac disease, arrhythmia, diabetes and insulin resistance. * Change auto CPAP pressure to 11-14 cmH2O * Notify me if snoring with mask or feeling that the pressure is too much or too little * Call this office if any problems using CPAP * Return for follow up in 1-2 months, or sooner if concerns arise Counseling Topics: Spare mask Visit Type: In Office Time Spent with Patient (minutes): 25 Provider Statement: I spent 100% of the Face to Face Visit with the patient with greater than 50% spent counseling the patient and coordination of care.
== END 2022-03-23 10:49 | disposition home or self-care (01) ==
LOC: SC 10:48
PROVIDERS: ATTEND Nurse Practitioner Family
DX: G47.33 Obstructive sleep apnea (adult) (pediatric) (principal)
CPT/HCPCS: 99213; G0463; 99212

== ENCOUNTER 2022-04-21 11:04 | Outpatient (CLI) | payer MEDICARE ==
[2022-04-21 11:51] VITALS: BP 140/70
--- NOTE | 2022-04-21 11:51 | SLEEP CARE CONSULTATION ---
Information from patient questionnaire entered by Joseline Dalal. I have reviewed and concur with the information entered by Joseline Dalal. This document represents the service I personally performed and the decisions made by me, Johnna Murillo ARNP. History of Present Illness Service Date and Time: 04/21/2022 1104 Previous diagnosis: Mild, Obstructive Sleep Apnea-Hypopnea Syndrome AHI: 12.0 (in 2021) Reason for follow up: one month (F/U PRESSURE CHANGE) Equipment type: CPAP (ResMed) Equipment obtained from: Other ([employer]; getting supplies) Mask style: Full face Mask brand: Respironics (Dreamwear, large cushion) Backup mask available: Yes (other mask) Prior sleep studies: No Type of Sleep Study: Polysomnography (F/U POLY, 12/20/2021 [facility], POS,) HPI additional information: DENEEN LARES was diagnosed to have mild, AHI 12.0, obstructive sleep apnea- hypopnea syndrome and returned today for CPAP therapy one month follow-up. Sleep Study - Results Type of Sleep Study: Polysomnography (F/U POLY, 12/20/2021 [facility], POS,) Prior sleep studies: No CPAP Compliance Data - Data Reviewed with Patient Average duration of nightly device use: 5 HRS 11 MIN Compliance rate %: 77 (03/20/2022-04/18/2022) Current pressure setting (cmH2O): 11-14 Average residual AHI: 9.2 Central apnea: 0.2 Obstructive apnea: 4.2 Hypopnea: 0.7 Subjective Patient concerns: reports: mask discomfort, condensation in mask/hose, dry mouth, nose, throat, other (headache; upper neck/occipital headaches). denies: aerophagia, air blowing in eyes, mask leak noise, nasal congestion, epistaxis Observed to snore while using device: No Current pressure setting perceived as: comfortable On therapy, patient: reports: other (more sleep interruptions to sleep since using CPAP). denies: awakening more refreshed, more rested overall (taking 2-3 naps a week) Initial [place] Sleepiness Scale score: 2 (12/13/2021) Current [place] Sleepiness Scale score: 2 Allergies and Home Medications Drug allergies reviewed: Yes (camphor, sulfa) Home medication list reviewed: Yes (no changes) Review of Systems Review of systems same as previous: Yes (no changes) Physical Exam Vital signs obtained and entered by: Ange Bowers, supervisor plastics Pressure: 140/70 (left) Heart Rate: 70 O2 Saturation: 99 Height: 6 ft 4 in Weight: 217 lb Body Mass Index: 26.4 BMI Classification: Overweight Impression and Plan 1. Obstructive Sleep Apnea-Hypopnea Syndrome, mild, with good treatment compliance and fair apnea control. Patient has mildly elevated residual AHI that did improve with last pressure adjustment. Patient has not felt that his sleep or insomnia has improved. He feels to sleep interruption from the mask leaking and machine is making his insomnia worse. He is taking naps about 3 times a week when he only did once a week prior to CPAP. Patient continues his measured breathing when going to sleep and is concerned the machine is detecting more episodes than is actually happening at beginning of night. He states last n ight's AHI was good at 1.7. I think the pressure may be starting too low at the beginning of night. I will increase his ramp pressure to 6 cmH2O. He is also concerned that a few times he has woke up with pressure at 4.0. I will not make any change to current pressure and will have him follow up in 1-[address] Lee for further insight into his treatment. Patient's apnea severity and rationale for treatment to reduce apnea, improve sleep quality and reduce cardiovascular and cerebrovascular events was reviewed. I also reviewed the benefit of consistent device use of CPAP for hypertension, cardiac disease, arrhythmia, diabetes and insulin resistance. * Continue auto CPAP pressure at 11-14 cmH2O * Increase ramp pressure to 6 cmH2O * Notify me if snoring with mask or feeling that the pressure is too much or too little * Call this office if any problems using CPAP * Return for follow up in 1-2 months, or sooner if concerns arise Counseling Topics: Spare mask, Weight loss health impact Visit Type: In Office Time Spent with Patient (minutes): 25 Provider Statement: I spent 100% of the Face to Face Visit with the patient with greater than 50% spent counseling the patient and coordination of care.
== END 2022-04-21 11:05 | disposition home or self-care (01) ==
LOC: SC 11:04
PROVIDERS: ATTEND Nurse Practitioner Family
DX: G47.33 Obstructive sleep apnea (adult) (pediatric) (principal); E66.3 Overweight; Z68.26 Body mass index [BMI] 26.0-26.9, adult
CPT/HCPCS: 99213; G0463; 99212

== ENCOUNTER 2022-05-01 14:51 | Emergency (ER) | payer MEDICARE ==
[2022-05-01 15:30] LABS: BASOPHILS # (AUTO) 0.1 10^3/uL (0.0-0.1); BASOPHILS % (AUTO) 0.9 %; EOSINOPHILS # (AUTO) 0.3 10^3/uL (0.0-0.7); EOSINOPHILS % (AUTO) 3.1 %; HCT - HEMATOCRIT 45.4 % (42.0-52.0); HGB - HEMOGLOBIN 15.1 g/dL (14.0-18.0); LYMPHOCYTES % (AUTO) 19.8 %; MEAN CORPUSCULAR HEMOGLOBIN 30.3 pg (27.0-31.0); MEAN CORPUSCULAR HGB CONC 33.3 g/dL (32.0-36.0); MEAN CORPUSCULAR VOLUME 91.2 fL (80.0-94.0); MEAN PLATELET VOLUME 10.9 fL (7.4-11.4); MONOCYTES # (AUTO) 0.9 10^3/uL (0.0-1.0); MONOCYTES % (AUTO) 8.6 %; NEUTROPHILS # (AUTO) 6.6 10^3/uL (1.5-6.6); NEUTROPHILS % (AUTO) 67.2 %; PLT - PLATELET COUNT 206 10^3/uL (130-450); RED BLOOD COUNT 4.98 10^6/uL (4.70-6.10); RED CELL DISTRIBUTION WIDTH 15.2 % (12.0-15.0); WHITE BLOOD COUNT 9.9 x10^3/uL (4.8-10.8)
[2022-05-01 15:50] LABS: ALBUMIN 3.8 g/dL (3.2-5.5); ALBUMIN/GLOBULIN RATIO 1.2 (1.0-2.2); BILIRUBIN,TOTAL 0.6 mg/dL (0.2-1.0); CALCIUM 9.5 mg/dL (8.5-10.3); POTASSIUM 4.9 mmol/L (3.5-5.0)
--- NOTE | 2022-05-01 16:40 | XRAY Report ---
PROCEDURE: Chest 1 View X-Ray INDICATIONS: Chest Pain TECHNIQUE: One view of the chest was acquired. COMPARISON: 12/24/2020 FINDINGS: Surgical changes and devices: None. Lungs and pleura: No pleural effusions or pneumothorax. Lungs are clear. Mediastinum: Mediastinal contours appear normal. Heart size is normal. Bones and chest wall: No suspicious bony lesions. Overlying soft tissues appear unremarkable. IMPRESSION: No acute radiographic abnormality. Reviewed by: Ramo Perdomo MD on 05/01/2022 4:39 PM [facility] Approved by: Ramo Perdomo MD on 05/01/2022 4:39 PM [facility] Station ID: [id number]
[2022-05-01] MEDS ORDERED: ENOXAPARIN 100 MG/ML SYRINGE SUBQ STA (18:56)
--- NOTE | 2022-05-01 18:57 | ED Physician Documentation ---
PD HPI CHEST PAIN - Stated complaint Stated Complaint: CHEST PX - Chief complaint Chief Complaint: Cardiac - History obtained from History obtained from: Patient - Additional information Additional information: The patient comes to the emergency department chief complaint of escalating episodes of shortness of breath over the last approximately week and a half, during exertion. Patient states he has had 3 angioplasties with the most recent being approximately 15 months ago. He states that after that, he adopted a lean diet and has been exercising regularly several times or more per week. He st ates he normally spends about 45 minutes on either the treadmill or rowing machine, but has been noticing unusual episodes of dyspnea recently with exercise. He states that he finally decided to come in today because he went to get the mail and walking back up the hill to his house, he felt very short of breath. He took a nitroglycerin at that time and the dyspnea completely resolved. He does not currently have any chest pain or shortness of breath. Patient does also note as an aside that he has a history of sleep apnea and uses a CPAP machine at home. He states he has been sleeping very poorly, waking up 5-7 times at night, and did have one episode within the last week where he woke up with marked chest pain centrally and found his blood pressure to be in the 190s over 100s. Patient states that he is not sure if this is because of discomfort related to the CPAP and lack of sleep, driving his blood pressure up. He states he was just seen by his bologna lacer remotely in March and was told he was doing well. His next appointment is in June. His bologna lacer is Dr. Timoteo Kruse through [facility] Patient denies any other complaints at this time. He does have a history of hypertension and diabetes. Review of Systems Ten Systems: 10 systems reviewed and negative Constitutional: reports: Reviewed and negative Eyes: reports: Reviewed and negative Ears: reports: Reviewed and negative Nose: reports: Reviewed and negative Throat: reports: Reviewed and negative Cardiac: reports: Chest pain / pressure Respiratory: reports: Dyspnea GI: reports: Reviewed and negative : reports: Reviewed and negative Skin: reports: Reviewed and negative Musculoskeletal: reports: Reviewed and negative Neurologic: reports: Reviewed and negative Psychiatric: reports: Reviewed and negative Endocrine: reports: Reviewed and negative Immunocompromised: reports: Reviewed and negative PD PAST MEDICAL HISTORY - Past Medical History Past Medical History: Yes Cardiovascular: Hypertension Respiratory: None Neuro: None Endocrine/Autoimmune: Type 2 diabetes : Other Musculoskeletal: Gout - Past Surgical History Past Surgical History: No Cardiovascular: Angioplasty - Present Medications Home Medications: Ambulatory Orders Medication Instructions Recorded Confirmed allopurinoL [Allopurinol] 200 mg PO DAILY 04/27/18 12/24/20 Insulin Glargine [Lantus Solostar] 14 unit SUBQ DAILY 06/27/19 12/24/20 Aspirin 81 mg PO DAILY 09/12/19 12/24/20 Atorvastatin Calcium 80 mg PO QPM 09/12/19 12/24/20 Carvedilol 6.25 mg PO BID 09/12/19 12/24/20 Colchicine 0.6 mg PO DAILY PRN 09/12/19 12/24/20 Insulin Aspart [NovoLOG] units SUBQ TID 09/12/19 Levothyroxine Sodium 175 mcg PO DAILY 09/12/19 12/24/20 Nitroglycerin 0.4 mg PO DAILY 09/12/19 12/24/20 amLODIPine [Norvasc] 10 mg PO DAILY 09/12/19 12/24/20 Clopidogrel [Plavix] 75 mg DAILY 12/24/20 12/24/20 Losartan Potassium [Cozaar] 100 mg DAILY 12/24/20 12/24/20 cloNIDine [Catapres] 0.2 mg QPM 12/24/20 12/24/20 - Allergies Allergies/Adverse Reactions: Allergies Allergy/AdvReac Type Severity Reaction Status Date / Time camphor Allergy Rash Verified 05/01/22 14:58 Sulfa (Sulfonamide Allergy Unknown Verified 05/01/22 14:58 Antibiotics) - Social History Does the pt smoke?: No Smoking Status: Never smoker Does the pt drink ETOH?: Yes Does the pt have substance abuse?: No - Immunizations Immunizations are current?: Yes - POLST Patient has POLST: No PD ED PE NORMAL - Vitals Vital signs reviewed: Yes - General General: Alert and oriented X 3, No acute distress, Well developed/nourished - HEENT HEENT: Atraumatic, PERRL, EOMI, Moist mucous membranes - Neck Neck: Supple, no meningeal sign - Cardiac Cardiac: RRR, No murmur, Strong equal pulses - Respiratory Respiratory: No respiratory distress, Clear bilaterally - Abdomen Abdomen: Soft, Non tender, Non distended - Derm Derm: Normal color, Warm and dry, No rash - Extremities Extremities: No deformity, No edema, No calf tenderness / cord - Neuro Neuro: Alert and oriented X 3 - Psych Psych: Normal mood, Normal affect Results - Vitals Vitals: Vital Signs - 24 hr 05/01/22 05/01/22 05/01/22 14:58 15:03 17:44 Temperature 36.8 C 36.8 C Heart Rate 61 61 60 Respiratory 18 18 12 Rate Blood Pressure 134/66 H 134/66 H 186/75 H O2 Saturation 99 99 100 05/01/22 19:00 Temperature Heart Rate 58 L Respiratory 13 Rate Blood Pressure 156/75 H O2 Saturation 99 Oxygen O2 Source Room air - Labs Labs: Laboratory Tests 05/01/22 05/01/22 05/01/22 15:13 15:13 15:23 WBC 9.9 RBC 4.98 Hgb 15.1 Hct 45.4 MCV 91.2 MCH 30.3 MCHC 33.3 RDW 15.2 H Plt Count 206 MPV 10.9 Neut # (Auto) 6.6 Lymph # (Auto) 2.0 Dare # (Auto) 0.9 Eos # (Auto) 0.3 Baso # (Auto) 0.1 Absolute Nucleated RBC 0.00 Nucleated RBC % 0.0 Sodium 140 Potassium 4.9 Chloride 108 Carbon Dioxide 22 Anion Gap 10.0 BUN 60 H Creatinine 2.0 H Estimated GFR (MDRD) 33 L Glucose 106 H Calcium 9.5 Total Bilirubin 0.6 AST 21 ALT 25 Alkaline Phosphatase 67 Troponin I High Sens 22.4 H* Total Protein 7.0 Albumin 3.8 Globulin 3.2 Albumin/Globulin Ratio 1.2 Lipase 50 05/01/22 18:34 WBC RBC Hgb Hct MCV MCH MCHC RDW Plt Count MPV Neut # (Auto) Lymph # (Auto) Dare # (Auto) Eos # (Auto) Baso # (Auto) Absolute Nucleated RBC Nucleated RBC % Sodium Potassium Chloride Carbon Dioxide Anion Gap BUN Creatinine Estimated GFR (MDRD) Glucose Calcium Total Bilirubin AST ALT Alkaline Phosphatase Troponin I High Sens 22.6 H* Total Protein Albumin Globulin Albumin/Globulin Ratio Lipase PD MEDICAL DECISION MAKING - ED course Complexity details: reviewed results, re-evaluated patient, considered differential, d/w patient ED course: The patient appeared very well in the emergency department and had an unremarkable EKG, as well as 2 negative troponins. He was concerned about the recent escalation in exertional dyspnea, though the patient did admit he had not been using his nitroglycerin except for 1 time during these episodes. At this point in time, his cardiology group has been paged and we are awaiting a callback. Patient signed out at change of shift pending this and final disposition.
--- NOTE | 2022-05-01 21:11 | ED Physician Documentation ---
ED Addendum - Addendum Addendum: 05/01/22 21:10 Patient received a signout from outgoing physician, please see their do cumentation for further detail. Patient evaluated independently at bedside, found to be resting comfortably and in no acute distress.Did report history episodes of chest pain with physical exertion over the course of the last few weeks. Care was discussed with the cardiology service Dr. Hart, At [facility] who expressed concern that there could be some Wellens pattern repolarization waves in the patient's current EKG. They do believe that this warrants transfer for cardiac stress testing and other provocative testing as indicated. He was placed on the wait list at [facility]. We also contacted [facility] however currently there are no beds available regionally with the capability of doing stress testing. 05/02/22 01:44 EK hrs. Sinus rhythm with rate 57 bpm. Normal axis. Normal TX, QRS, QTc intervals. No ST segment elevations. Nonspecific ST and T wave abnormalities prominently in leads V2-V4. Unchanged from previous.
[2022-05-02] MEDS ORDERED: CLOPIDOGREL 75 MG TABLET PO STA (12:35)
[2022-05-02] MEDS ORDERED: amLODIPine 5 MG TABLET PO STA (12:43)
[2022-05-02] MEDS ORDERED: LOSARTAN 50 MG TABLET PO STA (12:43)
[2022-05-02] MEDS: allopurinoL 100 MG TABLET PO SCH (12:55)
[2022-05-02] MEDS: ASPIRIN CHEW 81 MG TABLET PO SCH (12:55)
[2022-05-02] MEDS ORDERED: ATORVASTATIN 40 MG TABLET PO SCH (13:00)
[2022-05-02] MEDS ORDERED: LEVOTHYROXINE 125 MCG TABLET PO SCH (13:00)
[2022-05-02] MEDS ORDERED: LEVOTHYROXINE 75 MCG TABLET PO ONE (13:30)
[2022-05-02] MEDS ORDERED: LEVOTHYROXINE 100 MCG TABLET PO ONE (13:30)
[2022-05-02] MEDS: carvediloL 12.5 MG TABLET PO SCH (20:19)
[2022-05-02] MEDS: INSULIN GLARGINE-YFGN 300 UNIT/3 ML PEN SUBQ SCH (20:19)
[2022-05-02] MEDS: ATORVASTATIN 40 MG TABLET PO SCH (20:19)
[2022-05-03] MEDS ORDERED: LEVOTHYROXINE 125 MCG TABLET PO SCH (07:00)
[2022-05-03 08:24] LABS: BASOPHILS # (AUTO) 0.1 10^3/uL (0.0-0.1); BASOPHILS % (AUTO) 0.9 %; EOSINOPHILS # (AUTO) 0.4 10^3/uL (0.0-0.7); EOSINOPHILS % (AUTO) 4.3 %; HCT - HEMATOCRIT 47.4 % (42.0-52.0); HGB - HEMOGLOBIN 15.6 g/dL (14.0-18.0); LYMPHOCYTES # (AUTO) 2.1 10^3/uL (1.5-3.5); LYMPHOCYTES % (AUTO) 23.3 %; MEAN CORPUSCULAR HEMOGLOBIN 30.3 pg (27.0-31.0); MEAN CORPUSCULAR HGB CONC 32.9 g/dL (32.0-36.0); MEAN PLATELET VOLUME 10.8 fL (7.4-11.4); MONOCYTES # (AUTO) 0.8 10^3/uL (0.0-1.0); MONOCYTES % (AUTO) 8.3 %; NEUTROPHILS # (AUTO) 5.7 10^3/uL (1.5-6.6); PLT - PLATELET COUNT 187 10^3/uL (130-450); RED BLOOD COUNT 5.15 10^6/uL (4.70-6.10); RED CELL DISTRIBUTION WIDTH 15.3 % (12.0-15.0); WHITE BLOOD COUNT 9.1 x10^3/uL (4.8-10.8)
[2022-05-03 08:40] LABS: CALCIUM 9.5 mg/dL (8.5-10.3); CREATININE 1.8 mg/dL (0.6-1.2); POTASSIUM 4.5 mmol/L (3.5-5.0)
[2022-05-03] MEDS ORDERED: LOSARTAN 50 MG TABLET PO SCH (09:00)
[2022-05-03] MEDS: amLODIPine 5 MG TABLET PO SCH (09:07)
[2022-05-03] MEDS: carvediloL 12.5 MG TABLET PO SCH ×2 (09:07→20:34)
[2022-05-03] MEDS: ASPIRIN CHEW 81 MG TABLET PO SCH (09:07)
[2022-05-03] MEDS: allopurinoL 100 MG TABLET PO SCH (09:07)
[2022-05-03] MEDS: cloNIDine 0.1 MG TABLET PO SCH ×2 (11:06→20:34)
[2022-05-03] MEDS: ENOXAPARIN 100 MG/ML SYRINGE SUBQ SCH ×2 (11:06→20:34)
--- NOTE | 2022-05-03 11:34 | ED Physician Documentation ---
ED Addendum - Addendum Addendum: Subjective:Patient received in signout. He is awaiting transfer for unstable angina. He has been pain-free since being in the emergency department. His morning labs are reviewed and his high-sensitivity troponin is now normal. Objective:Lung sounds are clear, regular rhythm and rate Assessment:Unstable angina. Plan:I will start the patient on Lovenox as he is awaiting transfer for unstable angina given recent episodes of chest pain and EKG with concerns for possible Wellens.He remains on the wait list for [facility] where his forging engineer is as well as [facility].
[2022-05-03] MEDS: INSULIN GLARGINE-YFGN 300 UNIT/3 ML PEN SUBQ SCH (20:34)
[2022-05-03] MEDS: ATORVASTATIN 40 MG TABLET PO SCH (20:34)
--- NOTE | 2022-05-04 05:03 | ED Physician Documentation ---
ED Addendum - Addendum Addendum: 05/04/22 04:59 I received a call from [facility] hospitalist, Dr. Ford, who did take reported the patient and stated he would accept him in transfer. We were informed by the [facility] transfer center that a bed should be forthcoming and the patient can be transferred once a bed was assigned. At this point in time, we are waiting to hear from [facility] but the patient has been accepted and is expected to transfer this morning.
[2022-05-04] MEDS: ASPIRIN CHEW 81 MG TABLET PO SCH (10:22)
[2022-05-04] MEDS: carvediloL 12.5 MG TABLET PO SCH (10:22)
[2022-05-04] MEDS: amLODIPine 5 MG TABLET PO SCH (10:22)
[2022-05-04] MEDS: allopurinoL 100 MG TABLET PO SCH (10:22)
[2022-05-04] MEDS: cloNIDine 0.1 MG TABLET PO SCH (10:22)
[2022-05-04] MEDS: ENOXAPARIN 100 MG/ML SYRINGE SUBQ SCH (10:23)
[2022-05-04 15:01] VITALS: BP 142/75
--- NOTE | 2022-05-04 15:09 | ED Physician Documentation ---
ED Addendum - Addendum Addendum: Patient has been resting comfortably overnight. He remains without any symptoms. Feeling somewhat frustrated at Lack of movement regarding transfer. He is very understanding though that there is a region wide bed shortage. He was excepted by [facility] last night but there is still no bed available. Discussed plan for echo today Which he is agreeable to. He is planning to reach out to his expediter clerk to arrange for a televisit will he is here in our ER. 1450 - D/W Dr. Kruse (Cardiology, ) [phone]- Understands that there is a region wide bed shortage and that the patient has been boarding in the emergency department.Recommends allowing the patient to ambulate in the hallway and may be up a flight of stairs to see how he feels. If he remains without symptoms then would recommend discharge with plan for close outpatient follow- up. They would be able to schedule him for an outpatient cath on Sunday. He would recommend having patient continue on prasugrel and aspirin and adding isosorbide 30 mg daily. 05/04/22 16:35 Patient has received a bed assignment at [facility]. He would like to proceed with transfer For cardiology evaluation. EMS is here to transport the patient. Departure - Departure Disposition: 02 Transfer Acute Care [facility] Clinical Impression: Unstable angina Condition: Good Discharge Date/Time: 05/04/22 16:52
== END 2022-05-04 16:52 | disposition short-term general hospital (02) ==
LOC: ED 14:51
DX: I20.0 Unstable angina (principal); I10 Essential (primary) hypertension; E11.9 Type 2 diabetes mellitus without complications; Z79.4 Long term (current) use of insulin; Z20.822 Contact with and (suspected) exposure to COVID-19
CPT/HCPCS: 36415; 71045; 80048; 80053; 83690; 84484; 85025; 87635; 93005; 93306; 96372; 99285; A9270; J1650

== ENCOUNTER → 2022-05-04 | Outpatient (CLI) | payer MEDICARE | END | disposition short-term general hospital (02) | LOC: EMS 16:43 | PROVIDERS: ATTEND Emergency Medicine | DX: I20.0 Unstable angina (principal) | CPT/HCPCS: A0425; A0428 ==

== ENCOUNTER 2022-06-12 13:53 | Outpatient (CLI) | payer MEDICARE ==
[2022-06-12 19:33] VITALS: BP 136/70
--- NOTE | 2022-06-12 19:33 | SLEEP CARE CONSULTATION ---
Information from patient questionnaire entered by Rebekah Dalal. I have reviewed and concur with the information entered by Rebekah Dalal. This document represents the service I personally performed and the decisions made by me, Leela Reed MD, [facility]. History of Present Illness Service Date and Time: 06/12/2022 1353 Previous diagnosis: Mild, Obstructive Sleep Apnea-Hypopnea Syndrome AHI: 12.0 (in 2021) Reason for follow up: other (2MONTH F/U) Equipment type: CPAP (RESMED) Equipment obtained from: Other ([employer]; getting supplies) Mask style: Full face Prior sleep studies: No Type of Sleep Study: Polysomnography (F/U POLY, 12/20/2021 [facility], POS,) HPI additional information: Mr. Heart was diagnosed to have mild obstructive sleep apnea-hypopnea syndrome and returns today for follow up of CPAP therapy. The patient purchased the device from [employer]. and was fitted with a full face mask. He uses the device nightly and all through the night. The compliance report shows that he uses the device 48 nights out of the past 90 nights, a veraging 5.2 hours a night. He quit using the CPAP altogether after 04/30/22 when he had to be hospitalized for angina. He then had a s/p coronary artery bypass graft surgery. After the surgery, he has had persistent cough and also caught the To minimize unnecessary CVOVID-19 exposure, detailed physical exam was deferred. He has not gone back to use his CPAP. He complains of no particular problem with the device such as soreness on the face, dry nose, epistaxis, nasal congestion or headache. He thinks that the pressure of 11 - 14 cmH2O is comfortable. On the CPAP therapy he notices improvement in his sleep quality, and that he wakes up feeling fresher in the morning and more awake/alert during the day. His notices no snore at all. [place] Sleepiness Scale score is 7. The average residual AHI is 1.2; and average air leak is 15.5 L/minute. The 90th percentile pressure is 13.5 cmH2O. Sleep Study - Results Type of Sleep Study: Polysomnography (F/U POLY, 12/20/2021 [facility], POS,) Prior sleep studies: No Subjective Initial [place] Sleepiness Scale score: 2 (12/13/2021) Current [place] Sleepiness Scale score: 7 (06/12/22) Allergies and Home Medications Drug allergies reviewed: Yes Home medication list reviewed: Yes Allergy and home medication list: Allergies camphor Allergy (Verified 05/01/22 14:58) Rash Sulfa (Sulfonamide Antibiotics) Allergy (Verified 05/01/22 14:58) Unknown Review of Systems Review of systems same as previous: Yes Physical Exam Vital signs obtained and entered by: REBEKAH Mclean MA Blood Pressure: 136/70 (LEFT ARM) Cuff size: regular Heart Rate: 69 O2 Saturation: 98 Height: 6 ft 4 in Weight: 242 lb Body Mass Index: 29.4 BMI Classification: Overweight Impression and Plan IMPRESSION: 1. Obstructive Sleep Apnea-Hypopnea Syndrome, mild (AHI was 12.0), and positional, with the patient having good treatment compliance, at least initially. He has noticed some improvement on the treatment, mainly in his oxygen saturation at night, according to his watch. The current pressure appears effective and comfortable. Overall, he is very satisfied with treatment and plans to continue with it long-term. No adjustment is necessary today. PLAN: 1. Use CPAP as needed. 2. Avoid sleeping supine if not using his CPAP. 3. Return in one year for follow up or earlier if there is any problem with the treatment. Follow up with [facility] in: 1 year Visit Type: In Office Time Spent with Patient (minutes): 20 Provider Statement: I spent 100% of the Face to Face Visit with the patient with greater than 50% spent counseling the patient and coordination of care.
== END 2022-06-12 13:54 | disposition home or self-care (01) ==
LOC: SC 13:53
PROVIDERS: ATTEND Internal Medicine Pulmonary Disease
DX: G47.33 Obstructive sleep apnea (adult) (pediatric) (principal)
CPT/HCPCS: 99213; G0463; 99212

== ENCOUNTER 2022-09-26 13:20 | Outpatient (CLI) | payer MEDICARE ==
--- NOTE | 2022-09-26 19:33 | XRAY Report ---
PROCEDURE: Hand 3 View RT INDICATIONS: RIGHT HAND PAIN TECHNIQUE: 3 views of the hand(s) acquired. COMPARISON: None. FINDINGS: Bones: No fractures or dislocations. No suspicious bony lesions. Moderate degenerative joint diseas e at the first metacarpal phalangeal joint, and mild degenerative joint disease in multiple interphal angeal joints. Soft tissues: No suspicious soft tissue calcifications or masses. IMPRESSION: 1. No acute bony abnormality. 2. Degenerative joint disease, most severe and moderate at the first metacarpal phalangeal joint. Reviewed by: Mikie Cha MD on 09/26/2022 7:32 PM PDT Approved by: Mikie Cha MD on 09/26/2022 7:32 PM PDT Station ID: [id number]
== END 2022-09-26 23:59 | disposition home or self-care (01) ==
LOC: DI.WOS 13:20
PROVIDERS: ATTEND Physician Assistant Surgical
DX: M18.11 Unilateral primary osteoarthritis of first carpometacarpal joint, right hand (principal); M19.041 Primary osteoarthritis, right hand

== ENCOUNTER 2022-09-28 08:00 | Outpatient (CLI) | payer MEDICARE ==
--- NOTE | 2022-09-29 09:43 | XRAY Report ---
PROCEDURE: Shoulder 3 View LT INDICATIONS: LEFT SHOULDER PAIN TECHNIQUE: 4 views of the shoulder were acquired. COMPARISON: None. FINDINGS: Bones: No fractures or dislocations. No suspicious bony lesions. Visualized ribs appear intact. Gl enohumeral and acromial clavicular joint space narrowing with associated osteophytosis. Calcification projecting inferior to the acromion measuring 1 cm. Soft tissues: No suspicious soft tissue calcifications. IMPRESSION: Moderate shoulder osteoarthritis. 1 cm calcification projecting inferior to the acromion. Differential includes supraspinatus calcific tendinopathy versus dystrophic calcification. Reviewed by: Олег Johnston on 09/29/2022 9:42 AM PDT Approved by: Олег Johnston on 09/29/2022 9:42 AM PDT Station ID: [id number]
== END 2022-09-28 23:59 | disposition home or self-care (01) ==
LOC: DI.WOS 08:00
PROVIDERS: ATTEND Physician Assistant Surgical
DX: M19.012 Primary osteoarthritis, left shoulder (principal)

== ENCOUNTER 2023-11-01 07:17 | Outpatient (CLI) | payer MEDICARE ==
--- NOTE | 2023-11-01 13:11 | XRAY Report ---
PROCEDURE: Hand 3+V RT INDICATIONS: TRIGGER FINGER TECHNIQUE: 3 views of the hand(s) acquired. COMPARISON: X-ray hand 09/26/2022. FINDINGS: Bones: No fractures or dislocations. No suspicious bony lesions. Degenerative joint space narrowi ng is present most prominent at the first MCP as well as scattered IP joints. Overall appearance is s table compared to prior exam. Areas of subchondral lucency are present at the distal first metacarpal head. Soft tissues: No suspicious soft tissue calcifications or masses. IMPRESSION: Stable appearance of degenerative changes most prominent at the first MCP joint. Subchondral lucencie s are present which could represent cysts or an appropriate clinical laboratory circumstances arthrit ic erosions. Reviewed by: Bernadette Berger MD on 11/01/2023 1:10 PM PDT Approved by: Bernadette Berger MD on 11/01/2023 1:10 PM PDT Station ID: [id number]
== END 2023-11-01 07:18 | disposition home or self-care (01) ==
LOC: DI 07:17
PROVIDERS: ATTEND Physician Assistant Surgical
DX: M65.341 Trigger finger, right ring finger (principal); M18.11 Unilateral primary osteoarthritis of first carpometacarpal joint, right hand; R93.6 Abnormal findings on diagnostic imaging of limbs